=== PATIENT | male | born 1980 | race Two or more races ===

== ENCOUNTER 2020-01-30 15:54 | Emergency (ER) | payer OTHER ==
[~2020-01-30] VITALS: Ht 177.8 cm; Wt 84.8 kg
[2020-01-30 16:00] VITALS: BP 100/50
--- NOTE | 2020-01-30 16:54 | NUR ---
pt is medically cleared for incarceration and released under the care of [facility] E[facility]var[facility]. pt is in stable condition. Pt is ambulatory on steady gait.
== END 2020-01-30 16:56 ==
LOC: ER 16:06
DX: S60.511A Abrasion of right hand, initial encounter (principal); W22.8XXA Striking against or struck by other objects, initial encounter; Y93.89 Activity, other specified; Y92.89 Other specified places as the place of occurrence of the external cause; Y99.8 Other external cause status
CPT/HCPCS: 73130-TC